=== PATIENT | female | born 1990 | race Caucasian/White ===

== ENCOUNTER → 2016-09-09 | Outpatient (CLI) | payer BC, OTHER | LOC: OD 10:16 | PROVIDERS: ATTEND Nurse Practitioner Primary Care | DX: O72.1 Other immediate postpartum hemorrhage (principal) | CPT/HCPCS: 36415; 84702 ==

== ENCOUNTER 2016-10-04 17:23 | Emergency (ER) | payer BC ==
--- NOTE | 2016-10-04 19:45 | ER Document Report ---
HPI - HPI Patient complains to provider of: easy bruising for 2 weeks Onset: Other - 2 weeks Onset/Duration: Waxing and waning Quality of pain: No pain Pain Level: Denies Context: 26-year-old female complaining of bilateral lower leg atraumatic nontender ecchymosis which fades and then recurs in different locations. No other excessive bleeding in her body. She had a baby 3 months ago. She has a history of anemia. No history of ITP. No Complains of chest pain, shortness of breath, or abdominal pain. sHe was sent to the emergency department by [facility], lab work has been drawn at the urgent care. Associated Symptoms: None Exacerbated by: Denies Relieved by: Denies Similar symptoms previously: No Recently seen / treated by doctor: No - ROS ROS below otherwise negative: Yes Systems Reviewed and Negative: Yes All other systems reviewed and negative - REPRODUCTIVE Reproductive: REPORTS: : - DERM Skin Color: Normal, [place] Past Medical History - General Information source: Patient - Social History Smoking Status: Never Smoker Frequency of alcohol use: None Drug Abuse: None Lives with: Family Family History: CAD, DM, Hyperlipidemia, Hypertension, Malignancy, Other - DVT Pulmonary Medical History: Reports: Hx Bronchitis Renal/ Medical History: Reports: Hx Ovarian Cysts. Denies: Hx Peritoneal Dialysis GI Medical History: Reports: Hx Irritable Bowel Musculoskeltal Medical History: Reports Hx Fibromyalgia, Reports Hx Musculoskeletal Trauma Psychiatric Medical History: Reports: Hx Anxiety, Hx Bipolar Disorder, Hx Depression Traumatic Medical History: Reports: Hx Fractures - toe Past Surgical History: Reports: Hx Gynecologic Surgery - d&c, lap, cystoscopy, Hx Orthopedic Surgery - right great toe, Hx Pacemaker, Hx Tonsillectomy - 1996 - Immunizations Immunizations up to date: Yes Hx Diphtheria, Pertussis, Tetanus Vaccination: Yes Vertical Provider Document - CONSTITUTIONAL Agree With Documented VS: Yes Exam Limitations: No Limitations - INFECTION CONTROL TRAVEL OUTSIDE OF THE [place] IN LAST 30 DAYS: No - HEENT HEENT: Atraumatic, Normal ENT Exam, Normocephalic, PERRLA. negative: Conjuctival Injection, Pharyngeal Erythema - NECK Neck: Supple, Thyroid Normal. negative: Lymphadenopathy-Left, Lymphadenopathy- Right - RESPIRATORY Respiratory: Breath Sounds Normal, No Respiratory Distress - CARDIOVASCULAR Cardiovascular: Regular Rate, Regular Rhythm - GI/ABDOMEN Gastrointestinal: Abdomen Soft, Abdomen Non-Tender, No Organomegaly - MUSCULOSKELETAL/EXTREMETIES Musculoskeletal/Extremeties: TWILA FROM, Non-Tender Notes: knees, thighs various stages/ages of ecchymosis, no purpura or peticheae. - NEURO Level of Consciousness: Awake, Alert - DERM Integumentary: Warm, Dry Course - Re-evaluation Re-evalutation: 10/04/16 21:21 labs are normal - Laboratory Result Diagrams: 10/04/16 20:05 10/04/16 20:05 Discharge - Discharge Clinical Impression: Bruising Condition: Good Disposition: HOME, SELF-CARE Instructions: Contusion ([facility]) Additional Instructions: to er any worsening symptoms see your primary care physician for follow up Referrals: SJ ROSS MD [Primary Care Provider] - Follow up as needed
[2016-10-04 20:27] LABS: PROTHROMBIN TIME 12.6 SEC (11.4-15.4)
[2016-10-04 20:28] LABS: PARTIAL THROMBOPLASTIN TIME 29.5 SEC (23.5-35.8)
[2016-10-04 20:29] LABS: ABSOLUTE EOSINOPHILS # (AUTO) 0.1 10^3/uL (0.0-0.6); ABSOLUTE LYMPHOCYTES (AUTO) 3.3 10^3/uL (0.5-4.7); ABSOLUTE MONOCYTES (AUTO) 0.6 10^3/uL (0.1-1.4); ABSOLUTE NEUT (AUTO) 2.6 10^3/uL (1.7-8.2); BASOPHILS % (AUTO) 0.4 % (0-2); HEMATOCRIT 42.7 % (36.0-47.0); HEMOGLOBIN 14.3 g/dL (12.0-15.5); HGB HCT DIFFERENCE 0.2; LYMPHOCYTES % (AUTO) 49.8 % (13-45); MEAN CORPUSCULAR HGB CONC 33.5 g/dL (32.0-36.0); MEAN CORPUSCULAR VOLUME 84 fl (80-97); MONOCYTES % (AUTO) 8.5 % (3-13); RED BLOOD COUNT 5.09 10^6/uL (3.72-5.28); RED CELL DISTRIBUTION WIDTH 13.7 % (11.5-14.0); SEGMENTED NEUTROPHILS % (AUTO) 39.3 % (42-78); WHITE BLOOD COUNT 6.7 10^3/uL (4.0-10.5)
[2016-10-04 20:53] LABS: ALANINE AMINOTRANSFERASE 27 U/L (9-52); ALBUMIN 5.1 g/dL (3.5-5.0); ALKALINE PHOSPHATASE 85 U/L (38-126); ANION GAP 16 (5-19); ASPARTATE AMINO TRANSFERASE 22 U/L (14-36); BILIRUBIN,DIRECT 0.2 mg/dL (0.0-0.4); BILIRUBIN,TOTAL 0.6 mg/dL (0.2-1.3); BLOOD UREA NITROGEN 14 mg/dL (7-20); CALCIUM 9.9 mg/dL (8.4-10.2); CARBON DIOXIDE 26 mmol/L (22-30); CHLORIDE 101 mmol/L (98-107); GLUCOSE 83 mg/dL (75-110); POTASSIUM 4.4 mmol/L (3.6-5.0); SODIUM 143.3 mmol/L (137-145)
[2016-10-04 22:20] VITALS: BP 96/68
== END 2016-10-04 22:20 | disposition home or self-care (01) ==
LOC: ER 17:23
DX: R58 Hemorrhage, not elsewhere classified (principal)
CPT/HCPCS: 36415; 80053; 85025; 85610; 85730; 99283

== ENCOUNTER → 2016-11-15 | Outpatient (CLI) | payer BC | LOC: OD 13:35 | PROVIDERS: ATTEND Nurse Practitioner Primary Care | DX: Z32.01 Encounter for pregnancy test, result positive (principal) | CPT/HCPCS: 36415; 84702 ==

== ENCOUNTER 2016-12-22 00:30 | Emergency (ER) | payer BC ==
[2016-12-22 00:45] VITALS: BP 124/79
--- NOTE | 2016-12-22 08:10 | EKG REPORT ---
SEVERITY:- NORMAL ECG - SINUS RHYTHM : Confirmed by: Walker Tran MD 22-Dec-2016 08:09:49
== END 2016-12-22 02:43 | disposition left against medical advice (07) ==
LOC: ER 00:30
DX: Z53.21 Procedure and treatment not carried out due to patient leaving prior to being seen by health care provider (principal)
CPT/HCPCS: 93005; 93010

== ENCOUNTER 2017-09-10 11:49 | Emergency (ER) | payer BC ==
--- NOTE | 2017-09-10 12:32 | ER Document Report ---
ED General - General Chief Complaint: Pelvic Pain Stated Complaint: PELVIC PAIN Time Seen by Provider: 09/10/17 12:25 Mode of Arrival: Ambulatory Information source: Patient Notes: 27 yr old female g4 O+ presents 9 weeks pregnat with confirmed iup with heart beat from Dr Ross last week with compliants of cramping. pt ntoes a second sac was noted but demise was seen. TRAVEL OUTSIDE OF THE [place]. IN LAST 30 DAYS: No - HPI Onset: Just prior to arrival Onset/Duration: Sudden Quality of pain: Cramping Severity: Mild Pain Level: 1 Associated symptoms: Other Exacerbated by: Denies Relieved by: Denies Similar symptoms previously: No Recently seen / treated by doctor: Yes - Related Data Allergies/Adverse Reactions: adhesive tape [Adhesive Tape] Allergy (Verified 09/10/17 11:57) Generalized rash lactose [Lactose] Adverse Reaction (Verified 09/10/17 11:57) Diarrhea Past Medical History - Social History Smoking Status: Never Smoker Cigarette use (# per day): No Chew tobacco use (# tins/day): No Smoking Education Provided: No Frequency of alcohol use: None Drug Abuse: None Family History: CAD, DM, Hyperlipidemia, Hypertension, Malignancy, Other - DVT Patient has suicidal ideation: No Patient has homicidal ideation: No Pulmonary Medical History: Reports: Hx Bronchitis Renal/ Medical History: Reports: Hx Ovarian Cysts. Denies: Hx Peritoneal Dialysis GI Medical History: Reports: Hx Irritable Bowel Musculoskeltal Medical History: Reports Hx Fibromyalgia, Reports Hx Musculoskeletal Trauma Psychiatric Medical History: Reports: Hx Anxiety, Hx Bipolar Disorder, Hx Depression Traumatic Medical History: Reports: Hx Fractures - toe Past Surgical History: Reports: Hx Gynecologic Surgery - d&c, lap, cystoscopy, Hx Orthopedic Surgery - right great toe, Hx Pacemaker, Hx Tonsillectomy - 1996 - Immunizations Immunizations up to date: Yes Hx Diphtheria, Pertussis, Tetanus Vaccination: Yes Review of Systems - Review of Systems Notes: REVIEW OF SYSTEMS: CONSTITUTIONAL : Denies fever, chills, or sweats. Denies recent illness. EENT: Denies eye, ear, throat, or mouth pain or symptoms. Denies nasal or sinus congestion or discharge. Denies throat, tongue, or mouth swelling or difficulty swallowing. CARDIOVASCULAR: Denies chest pain. Denies palpitations or racing or irregular heart beat. Denies ankle edema. RESPIRATORY: Denies cough, cold, or chest congestion. Denies shortness of breath, difficulty breathing, or wheezing. GASTROINTESTINAL: Denies abdominal pain or distention. Denies nausea, vomiting , or diarrhea. Denies blood in vomitus, stools, or per rectum. Denies black, tarry stools. Denies constipation. GENITOURINARY: Denies difficulty urinating, painful urination, burning, frequency, blood in urine, or discharge. FEMALE GENITOURINARY: Denies vaginal bleeding, heavy or abnormal periods, irregular periods. Denies vaginal discharge or odor. Admits to pelvic cramping MUSCULOSKELETAL: Denies back or neck pain or stiffness. Denies joint pain or swelling. SKIN: Denies rash, lesions or sores. HEMATOLOGIC : Denies easy bruising or bleeding. LYMPHATIC: Denies swollen, enlarged glands. NEUROLOGICAL: Denies confusion or altered mental status. Denies passing out or loss of consciousness. Denies dizziness or lightheadedness. Denies headache. Denies weakness or paralysis or loss of use of either side. Denies problems with gait or speech. Denies sensory loss, numbness, or tingling. Denies seizures. PSYCHIATRIC: Denies anxiety or stress. Denies depression, suicidal ideation, or homicidal ideation. ALL OTHER SYSTEMS REVIEWED AND NEGATIVE. PHYSICAL EXAMINATION: GENERAL: Well-appearing, well-nourished and in no acute distress. HEAD: Atraumatic, normocephalic. EYES: Pupils equal round and reactive to light, extraocular movements intact, conjunctiva are normal. ENT: Nares patent, oropharynx clear without exudates. Moist mucous membranes. NECK: Normal range of motion, supple without lymphadenopathy LUNGS: Breath sounds clear to auscultation bilaterally and equal. No wheezes rales or rhonchi. HEART: Regular rate and rhythm without murmurs ABDOMEN: Soft, nontender, nondistended abdomen. No guarding, no rebound. No masses appreciated. Female : deferred Musculoskeletal: Normal range of motion, no pitting or edema. No cyanosis. NEUROLOGICAL: Cranial nerves grossly intact. Normal speech, normal gait. Normal sensory, motor exams PSYCH: Normal mood, normal affect. SKIN: Warm, Dry, normal turgor, no rashes or lesions noted. Dictation was performed using [employer] recognition software Physical Exam - Vital signs Vitals: Temp Pulse Resp BP Pulse Ox 98.3 F 79 18 105/65 100 09/10/17 12:01 09/10/17 12:01 09/10/17 12:09/10/17 12:09/10/17 12:01 Course - Re-evaluation Re-evalutation: 09/10/17 12:32 Patient's examination is quite benign, I believe the cramping she is having is from the previous demise, she is not having any bleeding at this time 09/10/17 15:41 Ultrasound is consistent with a 9 week single uterine , small subchorionic bleed is noted, the patient herself denies any instructions regarding threatened miscarriage have been provided to her, overall she looks well is in no distress and will be discharged home to follow-up with CHIEF SUSTAINABILITY OFFICER was very strict return precautions. Patient is happy with this plan After performing a Medical Screening Examination, I estimate there is LOW risk for ACUTE APPENDICITIS, BOWEL OBSTRUCTION, ACUTE CHOLECYSTITIS, PERFORATED DIVERTICULITIS, INCARCERATED HERNIA, PANCREATITIS, PELVIC INFLAMMATORY DISEASE, PERFORATED ULCER, ECTOPIC , or TUBO-OVARIAN ABSCESS, thus I consider the discharge disposition reasonable. Also, there is no evidence or peritonitis , sepsis, or toxicity. I have reevaluated this patient multiple times and no significant life threatening changes are noted. The patient and I have discussed the diagnosis and risks, and we agree with discharging home with close follow-up with the understanding that symptoms and presentations can change. We also discussed returning to the Emergency Department immediately if new or worsening symptoms occur. We have discussed the symptoms which are most concerning (e.g., bloody stool, fever, changing or worsening pain, vomiting) that necessitate immediate return. - Vital Signs Vital signs: Temp Pulse Resp BP Pulse Ox 98.3 F 79 18 105/65 100 09/10/17 12:01 09/10/17 12:09/10/17 12:09/10/17 12:01 09/10/17 12:01 - Laboratory Laboratory results interpreted by me: 09/10/17 12:35 Ur Leukocyte Esterase SMALL H - Diagnostic Test Radiology reviewed: Image reviewed - Report provided to the patient, Reports reviewed Discharge - Discharge Clinical Impression: Pelvic pain affecting Qualifiers: Trimester: first trimester Qualified Code(s): O26.891 - Other specified related conditions, first trimester; R10.2 - Pelvic and perineal pain ; R10.2 - Pelvic and perineal pain Condition: Stable Disposition: HOME, SELF-CARE Instructions: Pelvic Pain in ([facility]) Referrals: MELISSA ROSS NP [Primary Care Provider] - Follow up in 3-5 days
[2017-09-10 13:28] LABS: AMORPHOUS SEDIMENT,URINE TRACE /HPF
[2017-09-10 13:34] LABS: APPEARANCE,URINE CLOUDY; BILIRUBIN,URINE NEGATIVE (NEGATIVE); COLOR,URINE COLORLESS; GLUCOSE, URINE NEGATIVE (NEGATIVE); KETONES,URINE NEGATIVE (NEGATIVE); LEUKOCYTE ESTERASE,URINE SMALL (NEGATIVE); NITRITE,URINE NEGATIVE (NEGATIVE); PROTEIN,URINE NEGATIVE (NEGATIVE); URINE SPECIFIC GRAVITY 1.015; UROBILINOGEN,URINE NEGATIVE mg/dL (<2.0)
--- NOTE | 2017-09-10 15:25 | RADIOLOGY REPORT (SQ) ---
EXAM DESCRIPTION: U/S OB TRANSVAGINAL W/O DOP COMPLETED DATE/TIME: 09/10/2017 2:50 pm REASON FOR STUDY: + preg iup with 2 sacs possible demise COMPARISON: None. TECHNIQUE: static and realtime grayscale images acquired of the pelvis. Additional selected spectra l and color Doppler images recorded. All images stored on PACs. LIMITATIONS: None. FINDINGS: FETUS: Living intrauterine . EGA: 9 weeks 6 days. MICHAEL: 04/09/2018. FHR: 160 beats per minute. SUBCHORIONIC BLEED: Small subchorionic hemorrhage measuring 2.3 x 3.2 x 1.4 cm. UTERUS: The uterus measures 11.2 x 10.1 x 0.1 cm. Within the uterus there is a sac containing single intrauterine with a crown-rump length of 2.8 cm consistent with gestational a ge of 9 weeks 4 days. CERVICAL LENGTH: 4.3 cm Closed. RIGHT OVARY : Normal ovary with normal vascular flow. The right ovary measures 2.9 x 1.641.4 cm. LEFT OVARY: Normal ovary with normal vascular flow. The left ovary measures 3.8 x 3.9 x 2 cm. Withi n the left ovary there is a hypoechoic area coned measuring 2.3 x 3.2 x 1.4 cm consistent with corpus lutein cyst. IMPRESSION: Single intrauterine with gestational age 9 weeks 4 days. Small subchori onic hemorrhage. Trimester of : First - 0 to 13 weeks. TECHNICAL DOCUMENTATION: JOB ID: [id number] SC-69 2010 [employer]- All Rights Reserved Reading location - IP/workstation name: [email or web address]
[2017-09-10 15:49] VITALS: BP 99/62
== END 2017-09-10 15:48 | disposition home or self-care (01) ==
LOC: ER 11:49
DX: O26.891 Other specified pregnancy related conditions, first trimester (principal); R10.2 Pelvic and perineal pain; O20.8 Other hemorrhage in early pregnancy; Z3A.09 9 weeks gestation of pregnancy; Z91.048 Other nonmedicinal substance allergy status; Z87.42 Personal history of other diseases of the female genital tract
CPT/HCPCS: 76817; 81001; 99284

== ENCOUNTER 2018-10-04 06:45 | Emergency (ER) | payer OTHER ==
[2018-10-04] MEDS ORDERED: ONDANSETRON HCL INJ/PF 4 MG/2 ML SDV IV ONE (09:16)
[2018-10-04] MEDS ORDERED: MORPHINE SULFATE 10 MG/ML INJ IV ONE (09:16)
[2018-10-04 09:41] LABS: ABSOLUTE EOSINOPHILS # (AUTO) 0.1 10^3/uL (0.0-0.6); ABSOLUTE LYMPHOCYTES (AUTO) 2.1 10^3/uL (0.5-4.7); ABSOLUTE MONOCYTES (AUTO) 0.8 10^3/uL (0.1-1.4); ABSOLUTE NEUT (AUTO) 5.4 10^3/uL (1.7-8.2); BASOPHILS % (AUTO) 0.2 % (0-2); EOSINOPHILS % (AUTO) 1.6 % (0-6); HEMATOCRIT 37.1 % (36.0-47.0); HEMOGLOBIN 12.4 g/dL (12.0-15.5); LYMPHOCYTES % (AUTO) 24.6 % (13-45); MEAN CORPUSCULAR HEMOGLOBIN 26.3 pg (27.0-33.4); MEAN CORPUSCULAR HGB CONC 33.3 g/dL (32.0-36.0); MEAN CORPUSCULAR VOLUME 79 fl (80-97); MONOCYTES % (AUTO) 9.2 % (3-13); PLATELET COUNT 216 10^3/uL (150-450); RED BLOOD COUNT 4.69 10^6/uL (3.72-5.28); RED CELL DISTRIBUTION WIDTH 14.6 % (11.5-14.0); SEGMENTED NEUTROPHILS % (AUTO) 64.4 % (42-78); TOTAL CELLS COUNTED % (AUTO) 100 %; WHITE BLOOD COUNT 8.4 10^3/uL (4.0-10.5)
[2018-10-04 09:49] LABS: APPEARANCE,URINE CLEAR; BILIRUBIN,URINE NEGATIVE (NEGATIVE); COLOR,URINE STRAW; GLUCOSE, URINE NEGATIVE (NEGATIVE); KETONES,URINE NEGATIVE (NEGATIVE); LEUKOCYTE ESTERASE,URINE NEGATIVE (NEGATIVE); NITRITE,URINE NEGATIVE (NEGATIVE); PROTEIN,URINE NEGATIVE (NEGATIVE); URINE SPECIFIC GRAVITY 1.011; UROBILINOGEN,URINE NEGATIVE mg/dL (<2.0)
--- NOTE | 2018-10-04 10:13 | ER Document Report ---
ED General - General Chief Complaint: Pelvic Pain Stated Complaint: PELVIC PAIN Time Seen by Provider: 10/04/18 08:36 Primary Care Provider: SJ ROSS MD [Primary Care Provider] - Follow up as needed TRAVEL OUTSIDE OF THE U.S. IN LAST 30 DAYS: No - HPI Notes: Patient is a 28-year-old female resents to the emergency department for evaluation of pelvic pain. It started when she was having intercourse. She states that she got to her vaginal area and into her rectum. She does have a history of endometriosis. She had been on trials of Lupron in the past. She has not recently. She gave vaginally 6 months ago without any complications. She was breast-feeding until recently. She just had her first menstruation since delivering. She states normally her menstruation lasts approximately 10 days. She states this time she had a longer spotting, but was otherwise unremarkable. She is not using any form of control at this time. - Related Data Allergies/Adverse Reactions: adhesive tape [Adhesive Tape] Allergy (Verified 09/10/17 11:57) Generalized rash lactose [Lactose] Adverse Reaction (Verified 09/10/17 11:57) Diarrhea Past Medical History - General Information source: Patient - Social History Smoking Status: Former Smoker Family History: CAD, DM, Hyperlipidemia, Hypertension, Malignancy, Other - DVT Patient has suicidal ideation: No Patient has homicidal ideation: No Pulmonary Medical History: Reports: Hx Bronchitis Renal/ Medical History: Reports: Hx Ovarian Cysts. Denies: Hx Peritoneal Dialysis GI Medical History: Reports: Hx Irritable Bowel Musculoskeletal Medical History: Reports Hx Fibromyalgia, Reports Hx Musculoskeletal Trauma Psychiatric Medical History: Reports: Hx Anxiety, Hx Bipolar Disorder, Hx Depression Traumatic Medical History: Reports: Hx Fractures - toe Past Surgical History: Reports: Hx Gynecologic Surgery - d&c, lap, cystoscopy, Hx Orthopedic Surgery - right great toe, Hx Pacemaker, Hx Tonsillectomy - 1996 - Immunizations Immunizations up to date: Yes Hx Diphtheria, Pertussis, Tetanus Vaccination: Yes Review of Systems - Review of Systems Constitutional: No symptoms reported EENT: No symptoms reported Cardiovascular: No symptoms reported Respiratory: No symptoms reported Gastrointestinal: No symptoms reported Genitourinary: No symptoms reported Female Genitourinary: See HPI Musculoskeletal: No symptoms reported Skin: No symptoms reported Neurological/Psychological: No symptoms reported Physical Exam - Vital signs Vitals: Temp Pulse Resp BP Pulse Ox 98 F 73 16 90/59 L 100 10/04/18 06:46 10/04/18 06:46 10/04/18 06:46 10/04/18 06:46 10/04/18 06:46 - Notes Notes: Vital signs reviewed, please refer to chart. Patient is normocephalic, atraumatic. Pupils equal round, reactive to light. Neck is supple without meningismus. Heart is regular rate and rhythm. Lungs are clear to auscultation bilaterally. Abdomen is soft, moderate pelvic tenderness to palpation on the right pelvis, normoactive bowel sounds throughout. Extremities without cyanosis, clubbing, edema. Peripheral pulses are equal. Skin is warm and dry. Patient is awake, alert, neurological exam is nonfocal. Exam is performed. She does have some cervical motion tenderness, exam of the adnexa limited. There is a moderate amount of watery discharge with white adherent aspects. Cervical os is closed. Course - Re-evaluation Re-evalutation: 10/04/18 13:51 Patient presents the emergency department for evaluation. It is likely this is secondary to her endometriosis. Laboratory investigations, medications, ultrasound ordered. Ultrasound revealed a left hemorrhagic cyst of the ovary, but this is not primarily where her symptoms are. Pelvic exam did reveal some d ischarge. I discussed options with the patient. She did opt to be treated empirically for gonorrhea and chlamydia. These were placed. Awaiting wet mount and will treat accordingly. 10/04/18 14:23 Wet prep negative. We will treat patient with anti-inflammatories for her hemorrhagic cyst. She understands that PID and gonorrhea, chlamydia are still on the differential. She will be contacted if these are positive. She did accept treatment. We will send her home with anti-inflammatories. She is to return to the ED with worsening or new concerning symptoms of any sort. - Vital Signs Vital signs: Temp Pulse Resp BP Pulse Ox 98 F 73 16 90/59 L 100 10/04/18 06:46 10/04/18 06:46 10/04/18 06:46 10/04/18 06:46 10/04/18 06:46 - Laboratory Result Diagrams: 10/04/18 09:20 10/04/18 09:20 Laboratory results interpreted by me: 10/04/18 10/04/18 09:20 09:20 MCV 79 L MCH 26.3 L RDW 14.6 H Chloride 108 H Discharge - Discharge Clinical Impression: Pelvic pain, History of endometriosis, Hemorrhagic cyst of left ovary Condition: Stable Disposition: HOME, SELF-CARE Instructions: Pelvic Pain ([facility]), Toradol Injection ([facility]) Additional Instructions: Take medication as prescribed. Follow-up with your document management technician by next week. You will be contacted if any of your further test results come back as positive. Return to the emergency department with worsening or new concerning symptoms. Referrals: SJ ROSS MD [Primary Care Provider] - Follow up as needed
[2018-10-04 10:22] LABS: ALANINE AMINOTRANSFERASE 25 U/L (9-52); ALBUMIN 3.9 g/dL (3.5-5.0); ALKALINE PHOSPHATASE 54 U/L (38-126); ANION GAP 6 (5-19); ASPARTATE AMINO TRANSFERASE 18 U/L (14-36); BILIRUBIN,DIRECT 0.2 mg/dL (0.0-0.4); BILIRUBIN,TOTAL 0.3 mg/dL (0.2-1.3); BLOOD UREA NITROGEN 12 mg/dL (7-20); CALCIUM 9.5 mg/dL (8.4-10.2); CARBON DIOXIDE 25 mmol/L (22-30); CHLORIDE 108 mmol/L (98-107); GLUCOSE 90 mg/dL (75-110); POTASSIUM 4.5 mmol/L (3.6-5.0); SODIUM 138.5 mmol/L (137-145); TOTAL PROTEIN 6.7 g/dL (6.3-8.2)
--- NOTE | 2018-10-04 12:52 | RADIOLOGY REPORT (SQ) ---
EXAM DESCRIPTION: U/S NON OB PEL TV W/DOPPLER COMPLETED DATE/TIME: 10/04/2018 11:46 am REASON FOR STUDY: right pelvic pain COMPARISON: 2014 TECHNIQUE: Dynamic and static grayscale images acquired of the pelvis via transvaginal approach and recorded on PACS. Additional selected color Doppler and spectral images recorded. LIMITATIONS: None. FINDINGS: UTERUS: Contour normal. No mass. ENDOMETRIAL STRIPE: No focal or generalized thickening. No masses. CERVIX: No nabothian cysts. RIGHT OVARY AND DOPPLER: Normal size. No worrisome masses. Normal arterial vascular flow without evid ence for torsion. LEFT OVARY AND DOPPLER: Normal size. 1.6 cm diameter cyst. No worrisome masses. Normal arterial vas cular flow without evidence for torsion. FREE FLUID: Moderate free fluid with debris. OTHER: No other significant finding. IMPRESSION: Complex free fluid most likely secondary to hemorrhagic cyst. TECHNICAL DOCUMENTATION: JOB ID: [id number] [employer]- All Rights Reserved Rev-10/28 Reading location - IP/workstation name: [email or web address]
[2018-10-04] MEDS ORDERED: CEFTRIAXONE INJ 500 MG VIAL IV ONE (13:14)
[2018-10-04] MEDS ORDERED: AZITHROMYCIN 1 GM SUSP PACKET PO ONE (13:15)
[2018-10-04] MEDS ORDERED: KETOROLAC TROMETHAMINE INJ/PF 30 MG/1 ML SDV IV ONE (13:15)
[2018-10-04 13:43] LABS: RBCS (WET MOUNT) NO RBCS SEEN; T.VAGINALIS (WET MOUNT) NO TRICHOMONAS SEEN; WBCS (WET MOUNT) RARE WBCS SEEN; YEAST (WET MOUNT) NO YEAST SEEN
[2018-10-04 14:47] VITALS: BP 112/72
[2018-10-04 15:11] LABS: CHLAM PCR NOT DETECTED (NOT DETECT); GON PCR NOT DETECTED (NOT DETECT)
== END 2018-10-04 14:50 | disposition home or self-care (01) ==
LOC: ER 06:45
DX: R10.2 Pelvic and perineal pain (principal); N83.202 Unspecified ovarian cyst, left side; Z95.0 Presence of cardiac pacemaker
CPT/HCPCS: 99284; 96375; 96365; 36415; 87210; 85025; 81025; 80053; 81001; 87491; 87591; 76830; 93976; Q0144; J1885; J2270; J0696; J2405

== ENCOUNTER 2019-01-23 00:23 | Emergency (ER) | payer OTHER ==
[2019-01-23 04:10] LABS: ABSOLUTE EOSINOPHILS # (AUTO) 0.3 10^3/uL (0.0-0.6); ABSOLUTE LYMPHOCYTES (AUTO) 3.5 10^3/uL (0.5-4.7); ABSOLUTE MONOCYTES (AUTO) 0.8 10^3/uL (0.1-1.4); ABSOLUTE NEUT (AUTO) 3.3 10^3/uL (1.7-8.2); BASOPHILS % (AUTO) 0.5 % (0-2); EOSINOPHILS % (AUTO) 3.7 % (0-6); HEMOGLOBIN 13.1 g/dL (12.0-15.5); LYMPHOCYTES % (AUTO) 44.5 % (13-45); MEAN CORPUSCULAR HEMOGLOBIN 27.2 pg (27.0-33.4); MEAN CORPUSCULAR HGB CONC 33.7 g/dL (32.0-36.0); MEAN CORPUSCULAR VOLUME 81 fl (80-97); MONOCYTES % (AUTO) 9.5 % (3-13); PLATELET COUNT 250 10^3/uL (150-450); RED BLOOD COUNT 4.82 10^6/uL (3.72-5.28); RED CELL DISTRIBUTION WIDTH 14.1 % (11.5-14.0); SEGMENTED NEUTROPHILS % (AUTO) 41.8 % (42-78); TOTAL CELLS COUNTED % (AUTO) 100 %; WHITE BLOOD COUNT 7.9 10^3/uL (4.0-10.5)
[2019-01-23 04:35] LABS: ALBUMIN 4.6 g/dL (3.5-5.0); ALKALINE PHOSPHATASE 58 U/L (38-126); ANION GAP 10 (5-19); ASPARTATE AMINO TRANSFERASE 22 U/L (14-36); BILIRUBIN,DIRECT 0.2 mg/dL (0.0-0.4); BILIRUBIN,TOTAL 0.3 mg/dL (0.2-1.3); BLOOD UREA NITROGEN 15 mg/dL (7-20); CALCIUM 9.7 mg/dL (8.4-10.2); CARBON DIOXIDE 27 mmol/L (22-30); CHLORIDE 103 mmol/L (98-107); CREATINE KINASE 133 U/L (30-135); GLUCOSE 93 mg/dL (75-110); POTASSIUM 4.5 mmol/L (3.6-5.0); TOTAL PROTEIN 7.6 g/dL (6.3-8.2)
[2019-01-23 04:46] LABS: CREATINE KINASE MB 1.09 ng/mL (<4.55)
[2019-01-23 04:47] LABS: TROPONIN I < 0.012 ng/mL
[2019-01-23 05:18] LABS: FREE T4 (FREE THYROXINE) 0.92 ng/dL (0.78-2.19)
[2019-01-23 05:32] LABS: THYROID STIMULATING HORMONE 6.28 uIU/mL (0.47-4.68)
[2019-01-23 05:33] LABS: APPEARANCE,URINE CLEAR; BILIRUBIN,URINE NEGATIVE (NEGATIVE); COLOR,URINE COLORLESS; GLUCOSE, URINE NEGATIVE (NEGATIVE); KETONES,URINE NEGATIVE (NEGATIVE); LEUKOCYTE ESTERASE,URINE NEGATIVE (NEGATIVE); NITRITE,URINE NEGATIVE (NEGATIVE); PROTEIN,URINE NEGATIVE (NEGATIVE); URINE SPECIFIC GRAVITY 1.004; UROBILINOGEN,URINE NEGATIVE mg/dL (<2.0)
--- NOTE | 2019-01-23 07:15 | ER Document Report ---
ED Cardiac - General Chief Complaint: Chest Pain Stated Complaint: DIZZINESS Time Seen by Provider: 01/23/19 06:18 Primary Care Provider: SJ ROSS MD [Primary Care Provider] - Follow up as needed Notes: 28-year-old female presents to the ER complaining of dizziness palpitation shortness of breath. Patient has had this going on for several months. She is currently in a work-up with [facility]. She had saw them in December. She has wore a Holter monitor for them. The patient denies any fever chills sore t hroat. Denies headache denies extremity numbness tingling weakness states she begins feeling palpitations in her chest and she becomes dizzy and short of breath she feels as if her heart rate is rapid. TRAVEL OUTSIDE OF THE [place] IN LAST 30 DAYS: No - Related Data Allergies/Adverse Reactions: adhesive tape [Adhesive Tape] Allergy (Verified 09/10/17 11:57) Generalized rash lactose [Lactose] Adverse Reaction (Verified 09/10/17 11:57) Diarrhea Past Medical History - Social History Smoking Status: Never Smoker Family History: CAD, DM, Hyperlipidemia, Hypertension, Malignancy, Other - DVT Patient has suicidal ideation: No Patient has homicidal ideation: No Pulmonary Medical History: Reports: Hx Bronchitis Renal/ Medical History: Reports: Hx Ovarian Cysts. Denies: Hx Peritoneal Dialysis GI Medical History: Reports: Hx Irritable Bowel Musculoskeletal Medical History: Reports Hx Fibromyalgia, Reports Hx Musculoskeletal Trauma Psychiatric Medical History: Reports: Hx Anxiety, Hx Bipolar Disorder, Hx Depression Traumatic Medical History: Reports: Hx Fractures - toe Past Surgical History: Reports: Hx Gynecologic Surgery - d&c, lap, cystoscopy, Hx Orthopedic Surgery - right great toe, Hx Pacemaker, Hx Tonsillectomy - 1996 - Immunizations Immunizations up to date: Yes Hx Diphtheria, Pertussis, Tetanus Vaccination: Yes Review of Systems - Review of Systems Constitutional: denies: Chills, Diaphoresis, Fever Cardiovascular: Chest pain, Palpitations, Heart racing, Dyspnea Respiratory: Short of breath. denies: Cough Gastrointestinal: denies: Abdominal pain, Diarrhea, Nausea, Vomiting Genitourinary: denies: Dysuria, Hematuria Female Genitourinary: denies: Musculoskeletal: denies: Back pain Neurological/Psychological: denies: Headaches -: Yes All other systems reviewed and negative Physical Exam - Vital signs Vitals: Temp Pulse Resp BP Pulse Ox 98.6 F 89 16 119/74 98 01/23/19 00:35 01/23/19 00:35 01/23/19 00:35 01/23/19 00:35 01/23/19 00:35 - Notes Notes: GENERAL_APPEARANCE: well_nourished, alert, cooperative, no_acute_distress, no_obvious_discomfort. VITALS: reviewed, see vital signs table. HEAD: no_swelling\tenderness on the head. EYES: PERRL, EOMI, conjunctiva_clear. NOSE: no_nasal_discharge. MOUTH: (-)decreased moisture. THROAT: no_tonsilar_inflammation, no_airway_obstruction. no_lymphadenopathy NECK: supple, no_neck_tenderness, (-)thyromegaly. BACK: no_back_tenderness. CHEST_WALL: no_chest_tenderness. LUNGS: no_wheezing, no_rales, no_rhonchi, (-)accessory muscle use, good air exchange bilateral. HEART: normal_rate, normal_rhythm, normal_S1, normal_S2, (-)S3, (-)S4, no_murmur, no_rub. ABDOMEN: normal_BS, soft, no_abd_tenderness, (-)guarding, (-)rebound, no_organomegaly, no_abd_masses. EXTREMITIES: good pulses in all_extremities, no_swelling\tenderness in the extremities, no_edema. SKIN: warm, dry, good_color, no_rash. MENTAL_STATUS: speech_clear, oriented_X_3, anxious_affect, respo nds_appropriately to questions. Course - Re-evaluation Re-evalutation: 01/23/19 07:13 28-year-old female presents to the ER with palpitations. Here her vital signs are normal. Her work-up is fairly reassuring her TSH was mildly elevated however no significant elect light abnormalities troponin is negative. Patient is currently under the care of [facility] for this work-up she had just sent in her Holter monitor. Sounds like it ZIO Patch. At this time I see no emergency medical condition and need stabilized or transferred. The patient likely will need further work-up with [facility] to get to the bottom of this otherwise the patient will be discharged home to follow-up with them. - Vital Signs Vital signs: Temp Pulse Resp BP Pulse Ox 98.6 F 89 16 113/71 100 01/23/19 00:35 01/23/19 00:35 01/23/19 06:01 01/23/19 06:00 01/23/19 06:01 - Laboratory Result Diagrams: 01/23/19 03:40 01/23/19 03:40 Laboratory results interpreted by me: 01/23/19 01/23/19 01/23/19 03:40 03:40 05:20 RDW 14.1 H Seg Neutrophils % 41.8 L TSH 6.28 H Urine Blood MODERATE H - Diagnostic Test Radiology reviewed: Reports reviewed - EKG Interpretation by Me EKG shows normal: Sinus rhythm Rate: Normal Rhythm: NSR Discharge - Discharge Clinical Impression: Palpitations Condition: Good Disposition: HOME, SELF-CARE Instructions: Palpitations (Irregular or Rapid Heartrate) ([facility]) Additional Instructions: Please follow-up with your building stonecutter at [facility] Referrals: SJ ROSS MD [Primary Care Provider] - Follow up as needed
[2019-01-23 07:47] VITALS: BP 115/68
--- NOTE | 2019-01-23 09:36 | EKG REPORT ---
SEVERITY:- NORMAL ECG - SINUS RHYTHM : Confirmed by: Farhat Piña 23-Jan-2019 09:35:39
== END 2019-01-23 07:49 | disposition home or self-care (01) ==
LOC: ER 00:23
DX: R00.2 Palpitations (principal); R42 Dizziness and giddiness; R06.02 Shortness of breath; R79.89 Other specified abnormal findings of blood chemistry; R07.9 Chest pain, unspecified; Z91.048 Other nonmedicinal substance allergy status; Z82.49 Family history of ischemic heart disease and other diseases of the circulatory system
CPT/HCPCS: 36415; 80053; 81001; 82550; 82553; 83735; 84439; 84443; 84484; 85025; 93005; 93010; 99284

== ENCOUNTER 2019-02-02 12:02 | Emergency (ER) | payer OTHER ==
--- NOTE | 2019-02-02 12:27 | EKG REPORT ---
SEVERITY:- NORMAL ECG - SINUS RHYTHM : Confirmed by: Nakia Clifton MD 02-Feb-2019 12:25:49
--- NOTE | 2019-02-02 12:39 | ER Document Report ---
ED Medical Screen (RME) - General Chief Complaint: Palpitations Stated Complaint: CHEST PAIN Time Seen by Provider: 02/02/19 12:35 Primary Care Provider: SJ ROSS MD [Primary Care Provider] - Follow up as needed Mode of Arrival: Ambulatory Information source: Patient Notes: 28-year-old female presented to ED for complaint of chest pressure substernal and shortness of breath since yesterday. She states she has had no nausea or vomiting or diarrhea. She is being seen by [facility] for atrial fib/atrial flutter and pots. She has a low blood pressure has a history of endometriosis IBS and anxiety. She has had multiple fractures. She states that do plans on doing a CT soon to rule out a pulmonary emboli they have not sure yet what exactly is going on with her heart they have done multiple testing which will be on the records that was forwarded for her evaluations. I have greeted and performed a rapid initial assessment of this patient. A comprehensive ED assessment and evaluation of the patient, analysis of test results and completion of medical decision making process will be conducted by an additional ED providers. TRAVEL OUTSIDE OF THE [place] IN LAST 30 DAYS: No - Related Data Allergies/Adverse Reactions: adhesive tape [Adhesive Tape] Allergy (Verified 02/02/19 12:04) Generalized rash lactose [Lactose] Adverse Reaction (Verified 02/02/19 12:04) Diarrhea Past Medical History Pulmonary Medical History: Reports: Hx Bronchitis Renal/ Medical History: Reports: Hx Ovarian Cysts. Denies: Hx Peritoneal Dialysis GI Medical History: Reports: Hx Irritable Bowel Musculoskeltal Medical History: Reports Hx Fibromyalgia, Reports Hx Musculoskeletal Trauma Psychiatric Medical History: Reports: Hx Anxiety, Hx Bipolar Disorder, Hx Depression Traumatic Medical History: Reports: Hx Fractures - toe Past Surgical History: Reports: Hx Gynecologic Surgery - d&c, lap, cystoscopy, Hx Orthopedic Surgery - right great toe, Hx Pacemaker, Hx Tonsillectomy - 1996 - Immunizations Immunizations up to date: Yes Hx Diphtheria, Pertussis, Tetanus Vaccination: Yes Physical Exam - Vital signs Vitals: Temp Pulse Resp BP Pulse Ox 98.1 F 97 16 98/74 L 100 02/02/19 12:07 02/02/19 12:07 02/02/19 12:07 02/02/19 12:07 02/02/19 12:07 Course - Vital Signs Vital signs: Temp Pulse Resp BP Pulse Ox 98.1 F 97 16 98/74 L 100 02/02/19 12:07 02/02/19 12:07 02/02/19 12:07 02/02/19 12:07 02/02/19 12:07 Doctor's Discharge - Discharge Referrals: SJ ROSS MD [Primary Care Provider] - Follow up as needed
[2019-02-02 13:05] LABS: APPEARANCE,URINE CLEAR; BILIRUBIN,URINE NEGATIVE (NEGATIVE); COLOR,URINE YELLOW; GLUCOSE, URINE NEGATIVE (NEGATIVE); KETONES,URINE NEGATIVE (NEGATIVE); LEUKOCYTE ESTERASE,URINE NEGATIVE (NEGATIVE); NITRITE,URINE NEGATIVE (NEGATIVE); PROTEIN,URINE NEGATIVE (NEGATIVE); UROBILINOGEN,URINE NEGATIVE mg/dL (<2.0)
--- NOTE | 2019-02-02 13:09 | RADIOLOGY REPORT (SQ) ---
EXAM DESCRIPTION: CHEST 2 VIEWS COMPLETED DATE/TIME: 02/02/2019 1:02 pm REASON FOR STUDY: chest pressure increasing short of breath COMPARISON: 10/27/2013 EXAM PARAMETERS: NUMBER OF VIEWS: two views TECHNIQUE: Digital Frontal and Lateral radiographic views of the chest acquired. RADIATION DOSE: NA LIMITATIONS: none FINDINGS: LUNGS AND PLEURA: No opacities, masses or pneumothorax. No pleural effusion. MEDIASTINUM AND HILAR STRUCTURES: No masses or contour abnormalities. HEART AND VASCULAR STRUCTURES: Heart normal size. No evidence for failure. BONES: No acute findings. HARDWARE: None in the chest. OTHER: No other significant finding. IMPRESSION: NO ACUTE RADIOGRAPHIC FINDING IN THE CHEST. TECHNICAL DOCUMENTATION: JOB ID: [id number] [employer]- All Rights Reserved Reading location - IP/workstation name: [email or web address]
[2019-02-02 13:16] LABS: ABSOLUTE EOSINOPHILS # (AUTO) 0.2 10^3/uL (0.0-0.6); ABSOLUTE LYMPHOCYTES (AUTO) 2.5 10^3/uL (0.5-4.7); ABSOLUTE MONOCYTES (AUTO) 0.7 10^3/uL (0.1-1.4); BASOPHILS % (AUTO) 0.5 % (0-2); HEMATOCRIT 39.4 % (36.0-47.0); HEMOGLOBIN 13.2 g/dL (12.0-15.5); LYMPHOCYTES % (AUTO) 33.3 % (13-45); MEAN CORPUSCULAR HEMOGLOBIN 27.3 pg (27.0-33.4); MEAN CORPUSCULAR HGB CONC 33.5 g/dL (32.0-36.0); MEAN CORPUSCULAR VOLUME 82 fl (80-97); MONOCYTES % (AUTO) 9.9 % (3-13); PLATELET COUNT 262 10^3/uL (150-450); RED BLOOD COUNT 4.84 10^6/uL (3.72-5.28); RED CELL DISTRIBUTION WIDTH 13.6 % (11.5-14.0); SEGMENTED NEUTROPHILS % (AUTO) 53.3 % (42-78); TOTAL CELLS COUNTED % (AUTO) 100 %; WHITE BLOOD COUNT 7.5 10^3/uL (4.0-10.5)
[2019-02-02 13:20] LABS: INTERNATIONAL RATION (INR) 1.02; PROTHROMBIN TIME 13.4 SEC (11.4-15.4)
[2019-02-02 13:21] LABS: PARTIAL THROMBOPLASTIN TIME 27.8 SEC (23.5-35.8)
[2019-02-02 13:34] LABS: ALBUMIN 4.7 g/dL (3.5-5.0); ALKALINE PHOSPHATASE 53 U/L (38-126); ANION GAP 10 (5-19); ASPARTATE AMINO TRANSFERASE 22 U/L (14-36); BILIRUBIN,DIRECT 0.1 mg/dL (0.0-0.4); BILIRUBIN,TOTAL 0.4 mg/dL (0.2-1.3); BLOOD UREA NITROGEN 13 mg/dL (7-20); CALCIUM 9.9 mg/dL (8.4-10.2); CARBON DIOXIDE 26 mmol/L (22-30); CHLORIDE 103 mmol/L (98-107); CREATINE KINASE 85 U/L (30-135); GLUCOSE 87 mg/dL (75-110); POTASSIUM 4.2 mmol/L (3.6-5.0); TOTAL PROTEIN 7.7 g/dL (6.3-8.2)
[2019-02-02 13:43] LABS: D-DIMER < 0.27 ug/mL (0.00-0.50)
[2019-02-02 13:45] LABS: CREATINE KINASE MB 0.62 ng/mL (<4.55)
[2019-02-02 13:46] LABS: TROPONIN I < 0.012 ng/mL
--- NOTE | 2019-02-02 14:45 | ER Document Report ---
ED General - General Chief Complaint: Palpitations Stated Complaint: CHEST PAIN Time Seen by Provider: 02/02/19 12:35 Primary Care Provider: SJ ROSS MD [Primary Care Provider] - Follow up as needed Mode of Arrival: Ambulatory Notes: Patient is a 28-year-old female that presents to the emergency department for chief complaint of shortness of breath and chest discomfort. Patient has been getting evaluated for episodes of palpitations, and episodes of lightheadedness, [facility], and recently had echocardiogram that demonstrated some right-sided dysfunction, but was otherwise negative, she was noted to be in a atrial fibrillation on her Holter monitor, this is all new for her. Last 2 days she is been having episodes of shortness of breath and chest pain, and that is why she was advised to come to the ED, she did recently have thyroid testing that was negative as well. She states these episodes come and go without warning, nothing seems to make them better or worse, she denies having any pain at this time. Denies having any lightheadedness at this time. Denies any recent fevers, chills, night sweats, nausea, vomiting or abdominal pain. Past Medical History: Atrial fibrillation, endometriosis Past Surgical History: Laparoscopy for endometriosis Social History: Denies tobacco, alcohol or drug use. Family History: Reviewed and noncontributory for presenting illness Allergies: Reviewed, see documented allergy list. REVIEW OF SYSTEMS: Other than noted above, the 12 point review of systems was reviewed with the patient and were negative, all pertinent findings are included in the HPI. PHYSICAL EXAMINATION: Vital signs reviewed, nursing noted reviewed. GENERAL: Well-appearing, well-nourished and in no acute distress. HEAD: Atraumatic, normocephalic. EYES: Eyes appear normal, extraocular movements intact, sclera anicteric, conjunctiva are normal. ENT: nares patent, oropharynx clear without exudates. Moist mucous membranes. NECK: Normal range of motion, supple without lymphadenopathy LUNGS: Breath sounds clear to auscultation bilaterally and equal. No wheezes rales or rhonchi. HEART: Regular rate and rhythm without murmurs ABDOMEN: Soft, nontender, normoactive bowel sounds. No rebound, guarding, or rigidity. No masses appreciated. EXTREMITIES: Nontender, good range of motion, no pitting or edema. NEUROLOGICAL: No focal neurological deficits. Moves all extremities spontaneously Motor and sensory grossly intact on exam. PSYCH: Normal mood, normal affect. SKIN: Warm, Dry, normal turgor, no rashes or lesions noted on exposed skin TRAVEL OUTSIDE OF THE [place] IN LAST 30 DAYS: No - Related Data Allergies/Adverse Reactions: adhesive tape [Adhesive Tape] Allergy (Verified 02/02/19 12:04) Generalized rash lactose [Lactose] Adverse Reaction (Verified 02/02/19 12:04) Diarrhea Past Medical History - General Information source: Patient - Social History Smoking Status: Never Smoker Family History: CAD, DM, Hyperlipidemia, Hypertension, Malignancy, Other - DVT Patient has suicidal ideation: No Patient has homicidal ideation: No Pulmonary Medical History: Reports: Hx Bronchitis Renal/ Medical History: Reports: Hx Ovarian Cysts. Denies: Hx Peritoneal Dialysis GI Medical History: Reports: Hx Irritable Bowel Musculoskeletal Medical History: Reports Hx Fibromyalgia, Reports Hx Musculoskeletal Trauma Psychiatric Medical History: Reports: Hx Anxiety, Hx Bipolar Disorder, Hx Depression Traumatic Medical History: Reports: Hx Fractures - toe Past Surgical History: Reports: Hx Gynecologic Surgery - d&c, lap, cystoscopy, Hx Orthopedic Surgery - right great toe, Hx Pacemaker, Hx Tonsillectomy - 1996 - Immunizations Immunizations up to date: Yes Hx Diphtheria, Pertussis, Tetanus Vaccination: Yes Physical Exam - Vital signs Vitals: Temp Pulse Resp BP Pulse Ox 98.1 F 97 16 98/74 L 100 02/02/19 12:07 02/02/19 12:07 02/02/19 12:07 02/02/19 12:07 02/02/19 12:07 Course - Re-evaluation Re-evalutation: Patient seen and examined vital signs reviewed. Laboratory data and/or imaging were ordered as appropriate for the patient's presenting symptoms and complaint, with consideration of any critical or life threatening conditions that may be associated with their obtained history and exam as noted above. Results were reviewed when available and demonstrated unremarkable blood work, negative chest x-ray, EKG demonstrated normal sinus rhythm without evidence of dysrhythmia, or ischemia, also patient had a negative d-dimer, she is also PERC negative, do not feel need to pursue CT a of the chest, to rule out PE, as she is low suspicion for PE, as noted negative d-dimer and negative PERC criteria. The patient was re-evaluated and was stable, no ectopy on the monitor Evaluation was most consistent with dyspnea, and unspecified chest pain, I did place a call to the patient's small engine trainer at [place], but did not receive a call back, did leave a message with their office, and advised that the patient follow-up with them which she was agreeable to. Results were discussed with the patient at this point, after careful consideration I feel that that patient can be discharged from the emergency department, the patient was educated treatments and reasons to return to the emergency department based on their presumed diagnosis as noted above, they were advised to followup with a primary care physician in 2-3 days. Patient was agreeable to plan of care. *Note is created using voice recognition software and may contain spelling, syntax or grammatical errors. Laboratory 02/02/19 02/02/19 02/02/19 12:40 13:05 13:05 WBC 7.5 RBC 4.84 Hgb 13.2 Hct 39.4 MCV 82 MCH 27.3 MCHC 33.5 RDW 13.6 Plt Count 262 Lymph % (Auto) 33.3 Mcdonald % (Auto) 9.9 Eos % (Auto) 3.0 Baso % (Auto) 0.5 Absolute Neuts (auto) 4.0 Absolute Lymphs (auto) 2.5 Absolute Monos (auto) 0.7 Absolute Eos (auto) 0.2 Absolute Basos (auto) 0.0 Seg Neutrophils % 53.3 PT 13.4 INR 1.02 APTT 27.8 D-Dimer < 0.27 Sodium Potassium Chloride Carbon Dioxide Anion Gap BUN Creatinine Est GFR ( Amer) Est GFR (MDRD) Non-Af Glucose Calcium Total Bilirubin Direct Bilirubin Neonat Total Bilirubin Neonat Direct Bilirubin Neonat Indirect Bili AST ALT Alkaline Phosphatase Creatine Kinase CK-MB (CK-2) Troponin I Total Protein Albumin Lipase Serum HCG, Qual Urine Color YELLOW Urine Appearance CLEAR Urine pH 9.0 Ur Specific [place] 1.010 Urine Protein NEGATIVE Urine Glucose (UA) NEGATIVE Urine Ketones NEGATIVE Urine Blood NEGATIVE Urine Nitrite NEGATIVE Urine Bilirubin NEGATIVE Urine Urobilinogen NEGATIVE Ur Leukocyte Esterase NEGATIVE Urine WBC (Auto) 1 Urine RBC (Auto) 1 Squamous Epi Cells Auto 2 Urine Mucus (Auto) RARE Urine Ascorbic Acid NEGATIVE 02/02/19 02/02/19 02/02/19 13:05 13:05 13:05 WBC RBC Hgb Hct MCV MCH MCHC RDW Plt Count Lymph % (Auto) Mcdonald % (Auto) Eos % (Auto) Baso % (Auto) Absolute Neuts (auto) Absolute Lymphs (auto) Absolute Monos (auto) Absolute Eos (auto) Absolute Basos (auto) Seg Neutrophils % PT INR APTT D-Dimer Sodium 139.1 Potassium 4.2 Chloride 103 Carbon Dioxide 26 Anion Gap 10 BUN 13 Creatinine 0.68 Est GFR ( Amer) > 60 Est GFR (MDRD) Non-Af > 60 Glucose 87 Calcium 9.9 Total Bilirubin 0.4 Direct Bilirubin 0.1 Neonat Total Bilirubin Not Reportable Neonat Direct Bilirubin Not Reportable Neonat Indirect Bili Not Reportable AST 22 ALT 15 Alkaline Phosphatase 53 Creatine Kinase 85 CK-MB (CK-2) 0.62 Troponin I < 0.012 Total Protein 7.7 Albumin 4.7 Lipase 79.6 Serum HCG, Qual NEGATIVE Urine Color Urine Appearance Urine pH Ur Specific [place] Urine Protein Urine Glucose (UA) Urine Ketones Urine Blood Urine Nitrite Urine Bilirubin Urine Urobilinogen Ur Leukocyte Esterase Urine WBC (Auto) Urine RBC (Auto) Squamous Epi Cells Auto Urine Mucus (Auto) Urine Ascorbic Acid Chest X-Ray 02/02/19 12:36 IMPRESSION: NO ACUTE RADIOGRAPHIC FINDING IN THE CHEST. - Vital Signs Vital signs: Temp Pulse Resp BP Pulse Ox 98.1 F 97 17 101/64 100 02/02/19 12:07 02/02/19 12:07 02/02/19 13:31 02/02/19 13:31 02/02/19 13:31 - Laboratory Result Diagrams: 02/02/19 13:05 02/02/19 13:05 Discharge - Discharge Clinical Impression: Shortness of breath Condition: Stable Disposition: HOME, SELF-CARE Instructions: Dyspnea, Nonspecific ([facility]) Additional Instructions: Please follow-up with your small engine trainer at [place], for any further testing. If your symptoms worsen or do not improve over the next several days, do not hesitate to return to the emergency department for reevaluation. Referrals: SJ ROSS MD [Primary Care Provider] - Follow up as needed
[2019-02-02 16:35] VITALS: BP 106/74
== END 2019-02-02 16:35 | disposition home or self-care (01) ==
LOC: ER 12:02
DX: R06.02 Shortness of breath (principal); R00.2 Palpitations; R07.9 Chest pain, unspecified; R42 Dizziness and giddiness
CPT/HCPCS: 36415; 71046; 80053; 81001; 82550; 82553; 83690; 84484; 84703; 85025; 85379; 85610; 85730; 93005; 93010; 99285

== ENCOUNTER → 2019-04-09 | Outpatient (CLI) | payer OTHER ==
--- NOTE | 2019-04-09 13:14 | EKG REPORT ---
SEVERITY:- NORMAL ECG - SINUS RHYTHM : Confirmed by: Walker Tran MD 09-Apr-2019 13:13:46
== END ==
LOC: OD 11:46
PROVIDERS: ATTEND Internal Medicine
DX: I48.3 Typical atrial flutter (principal)
CPT/HCPCS: 93005; 93010

== ENCOUNTER → 2019-11-30 | Outpatient (CLI) | payer OTHER ==
[2019-11-30 13:03] VITALS: BP 108/54
--- NOTE | 2019-11-30 13:03 | ER RDC ASSESSMENT REPORT ---
Intake - In the Last 14 days Have you traveled outside [place]?: No Have you been in close contact with someone CONFIRMED: No Worked in Healthcare?: No - Symptoms Subjective Fever([place] feverish): Yes Chills: No Muscule Aches: No Runny Nose: Yes Sore Throat: Yes Cough (New or worsening chronic cough): Yes Shortness of breath: Yes Nausea or Vomiting: No Headache: Yes Abdominal Pain: No Diarrhea(3 or more loose stools in last 24 hours): No - Do you have any of the following Chronic lung disease: Asthma or emphysema or COPD: No Cystic Fibrosis: No Diabetes: No High Blood Pressure: No Cardiovascular Disease: Yes Cardiovascular Disease Comment: Has a history of A. fib a fluJOSI caceres Chronic Kidney Disease: No Chronic Liver Disease: No Chronic blood disorder like Sickle Cell Disease: No Weak immune system due to disease or medication: No Neurologic condition that limits movement: No Developmental delay - Moderate to Severe: No Recent (within past 2 weeks) or current : No Morbid Obesity (>100 pounds over ideal weight): No Obesity Comment: Height 5 feet 6 inches weight 154 pounds - Objective Temperature: 96.5 F Pulse Rate: 82 Respiratory Rate: 20 Blood Pressure: 108/54 O2 Sat by Pulse Oximetry: 98 Objective: Given above, testing performed: If Testing Performed: Test Specimen Type Sent to General - General Information source: Patient Notes: Patient here at [facility] for COVID testing started feeling ill with upper respiratory symptoms on November 26 was seen yesterday at urgent care not given any prescriptions or diagnoses does complain of feeling feverish runny nose sore throat cough shortness of breath and headache. Eyes being around any known positive COVID persons. Patient's PCP is Dr. Jordan and has not contacted him at this point. - Related Data Allergies/Adverse Reactions: adhesive tape [Adhesive Tape] Allergy (Verified 02/02/19 12:04) Generalized rash lactose [Lactose] Adverse Reaction (Verified 02/02/19 12:04) Diarrhea Past Medical History - General Information source: Patient - Social History Smoking Status: Never Smoker Family History: CAD, DM, Hyperlipidemia, Hypertension, Malignancy, Other - DVT - Past Medical History Cardiac Medical History: Denies: Hx Coronary Artery Disease, Hx Heart Attack, Hx Hypertension Pulmonary Medical History: Reports: Hx Bronchitis Denies: Hx Asthma, Hx COPD, Hx Pneumonia, Hx Tuberculosis Neurological Medical History: Denies: Hx Cerebrovascular Accident, Hx Seizures Renal/ Medical History: Reports: Hx Ovarian Cysts. Denies: Hx Peritoneal Dialysis GI Medical History: Reports: Hx Irritable Bowel Musculoskeletal Medical History: Denies Hx Arthritis, Reports Hx Fibromyalgia, Reports Hx Musculoskeletal Trauma Psychiatric Medical History: Reports: Hx Anxiety, Hx Bipolar Disorder, Hx Depression Traumatic Medical History: Reports: Hx Fractures - toe Past Surgical History: Reports: Hx Gynecologic Surgery - d&c, lap, cystoscopy, Hx Orthopedic Surgery - right great toe, Hx Pacemaker, Hx Tonsillectomy - 1996 Physical Exam - General General appearance: Appears well, Alert In distress: None Notes: PHYSICAL EXAMINATION: GENERAL: Well-appearing and in no acute distress. HEAD: Atraumatic, normocephalic. EYES: sclera anicteric, conjunctiva are normal. ENT: nares patent. Moist mucous membranes. NECK: Normal range of motion, supple without lymphadenopathy LUNGS: CTAB and equal. No wheezes rales or rhonchi. Resp even and unlabored. Lung sounds clear. HEART: Regular rate and rhythm without murmurs ABDOMEN: Soft, nontender, normal bowel sounds, no guarding. EXTREMITIES: No cyanosis. NEUROLOGICAL: Normal speech. PSYCH: Normal mood, normal affect. SKIN: Warm, Dry, normal turgor, Diagnostic Results Laboratory Results: Patient informed of negative rapid strep and negative rapid flu results. pending strep culture pending COVID testing results. Patient bided instructions regarding COVID to include: As a person under investigation for Covid 19, the [place] department of Health and Human Services, division of public health advises you to adhere to the following guidance until your test results are reported to you. If your test result is positive, you will receive additional information from your provider and your local health department at that time. Remain at home until you are cleared by the health provider or public health authorities. Keep a log of visitors to your home, notify any visitors to your home of your isolation status. If you plan to move to a new address or leave the [facility], notify the local health department in your County. Call your doctor or seek care if you have an urgent medical need. Before seeking medical care, call ahead to get instructions from the provider before arriving at the medical office clinic or hospital. Notify them that you are being tested for the virus that causes Covid 19 so that arrangements can be made, as necessary, to prevent transmission to others in the healthcare setting. Next, notify the local health department in your county. If a medical emergency arises and you need to call 911, inform the first responders that you are being tested for the virus that causes Covid 19. Next, notify the local health department in your county. Patient Education/Counseling Counseling/Education: Patient presents with upper respiratory symptoms worrisome for possible Covid 19. Patient does not have emergency worring symptoms such as difficulty breathing, shortness of breath, chest pain, pressure, confusion or cyanosis. Patient appears suitable for discharge. Patient instructed to follow up with PCP Dr. Jordan. To ED for persistent or worsening symptoms. Patient's vital signs are stable and patient is nontoxic in appearance. Good return precautions have been discussed with patient, patient verbalized understanding and is agreeable with discharge plan of care at this time. RDC Discharge - Discharge Clinical Impression: COVID -19 SCREENING Condition: Stable Disposition: Home; Selfcare
[2019-11-30 14:30] LABS: A TYPE INFLUENZA AG NEGATIVE (NEGATIVE); B INFLUENZA AG NEGATIVE (NEGATIVE)
== END ==
LOC: RDC 12:13
PROVIDERS: ATTEND Nurse Practitioner Family
DX: Z20.828 Contact with and (suspected) exposure to other viral communicable diseases (principal); R50.9 Fever, unspecified; R06.02 Shortness of breath; R05 Cough; J02.9 Acute pharyngitis, unspecified; R51 Headache; R09.89 Other specified symptoms and signs involving the circulatory and respiratory systems; Z91.011 Allergy to milk products; Z91.048 Other nonmedicinal substance allergy status
CPT/HCPCS: 36415; 87070; 87880; 87635; 87804; C9803